=== PATIENT | male | born 2000 | race Caucasian/White ===

== ENCOUNTER 2023-03-25 17:40 | Emergency (ER) | payer OTHER, SELFPAY ==
[2023-03-25 17:47] VITALS: BP 109/77; PULSE 106; RESP 18; TEMP 36.6; O2SAT 99; BMI 21.5
--- NOTE | 2023-03-25 18:45 | CT_ITS ---
[facility] [place] [id number] Patient Name: EDGARDO MONTES MRN: [id number] date: 2000 Sex: M Assigned Patient Location: ER Current Patient Location: ED.MAIN Accession/Order Number: [id number] Exam Date: 03/25/2023 18:55 Report Date: 03/25/2023 20:05 At the request of: MILDRED MCITNYRE Procedure: CT cervical spine wo con EXAM: CT cervical spine wo con HISTORY: pain COMPARISON: None. TECHNIQUE: Unenhanced axial CT of the cervical spine is performed with coronal and sagittal reflects provided. FINDINGS: The craniocervical junction is maintained. Vertebral body heights and alignment are preserved. There are displaced C6 and C7 spinous process fractures noted. These involve the lamina bilaterally at each level. No significant degenerative disc disease. Mild fat stranding of the subcutaneous soft tissues at C6 and C7. The lung apices are clear. CT/CT cervical spine wo con IMPRESSION: Displaced fractures of C6 and C7 spinous processes as above. Electronically authenticated by: BONILLA DESAI Date: 03/25/2023 20:05
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
[2023-03-25 19:20] VITALS: BP 107/61; PULSE 68; RESP 20; O2SAT 98
== END 2023-03-25 20:47 | disposition home or self-care (01) ==
PROVIDERS: Emergency Provider Emergency Medicine
DX: M54.6 Pain in thoracic spine (principal); M54.2 Cervicalgia; F17.210 Nicotine dependence, cigarettes, uncomplicated; S12.500D Unspecified displaced fracture of sixth cervical vertebra, subsequent encounter for fracture with routine healing; S12.600D Unspecified displaced fracture of seventh cervical vertebra, subsequent encounter for fracture with routine healing; V89.2XXD Person injured in unspecified motor-vehicle accident, traffic, subsequent encounter
CPT/HCPCS: 72125; 99284

== ENCOUNTER 2023-07-20 10:30 | Observation (INO) | payer OTHER, SELFPAY ==
[2023-07-20] VITALS (11 sets, daily range): BP systolic 102–113; BP diastolic 50–64; PULSE 50–85; TEMP 36.4–36.8; O2SAT 97–100; BMI 20.2; BMI 20.1
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
--- NOTE | 2023-07-20 11:16 | CT_ITS ---
[address] [address] Patient Name: EDGARDO MONTES MRN: [id number] date: 2000 Sex: M Assigned Patient Location: ER Current Patient Location: Accession/Order Number: [id number] Exam Date: 07/20/2023 11:35 Report Date: 07/20/2023 11:52 At the request of: KRISTY UNDERWOOD Procedure: CT abdomen pelvis wo con EXAMINATION: CT abdomen pelvis wo con HISTORY: poss R kidney stone COMPARISON: No relevant comparison available. TECHNIQUE: Axial, Coronal, and Sagittal images were created without IV contrast. Dose reduction techniques were achieved by using automated exposure control and/or adjustment of mA and/or kV according to patient size and/or use of iterative reconstruction technique. FINDINGS: LUNG BASES: No visible pulmonary or pleural disease. LIVER: No enlargement, atrophy, abnormal density, or significant focal lesion. BILIARY: No dilatation or calcification. PANCREAS: No lesion, fluid collection, ductal dilatation, or atrophy. SPLEEN: No enlargement or focal lesion. ADRENALS: No mass or enlargement. KIDNEYS: No mass, obstruction, or calcification. BOWEL/MESENTERY: No visible mass, obstruction, or bowel wall thickening. The appendix is enlarged by strict size criteria measuring 8 mm in diameter. Minimal periappendiceal mesenteric stranding. AORTA/VASCULAR: No aneurysm or dissection. RETROPERITONEUM: No mass or adenopathy. LYMPH NODES: No adenopathy. URINARY BLADDER: No visible focal wall thickening, lesion, or calculus. PELVIC ORGANS: No visible mass. Pelvic organs appropriate for patient age. ABDOMINAL WALL: No mass or hernia. BONES: No bony lesion or fracture. OTHER: Negative. CT/CT abdomen pelvis wo con IMPRESSION: Acute uncomplicated appendicitis No obstructive uropathy Electronically authenticated by: SHERIE GUZMAN Date: 07/20/2023 11:52
[2023-07-20] MEDS: ONDANSETRON PF 4 MG/2 ML VIAL IV (11:25)
[2023-07-20] MEDS: KETOROLAC TROMETHAMINE 30 MG/ML VIAL 15 MG IVP (11:25)
[2023-07-20] MEDS: 0.9 % SODIUM CHLORIDE 1,000 ML 999 ML IV (11:26)
[2023-07-20 11:29] LABS: Basophils Absolute Auto 0.1 10^3/uL (0.0-0.1); Basophils Percent Auto 1.2 % (0.2-2.0); Eosinophils Absolute Auto 0.3 10^3/uL (0.0-0.7); Eosinophils Percent Auto 4.1 % (0.9-7.0); Hematocrit 42.1 % (42.0-54.0); Hemoglobin 14.8 g/dL (14.0-18.0); Immature Granulocytes Abs Auto 0.02 10^3/uL (0.00-0.03); Immature Granulocytes Pct Auto 0.3 % (0.0-0.5); Lymphocytes Absolute Auto 1.8 10^3/uL (1.2-3.8); Lymphocytes Percent Auto 26.8 % (20.5-60.0); Mean Corpuscular HGB Conc 35.2 g/dL (29.9-35.2); Mean Corpuscular Volume 85.4 fL (80.0-94.0); Monocytes Absolute Auto 0.4 10^3/uL (0.3-0.8); Monocytes Percent Auto 6.6 % (1.7-12.0); Platelet Count 257 10^3/uL (150-450); Red Blood Count 4.93 10^6/uL (4.70-6.10); White Blood Count 6.5 10^3/uL (4.0-11.0)
--- NOTE | 2023-07-20 11:29 | ED_ITS ---
HPI - Abdominal Pain General Chief Complaint: Abdominal Pain Stated Complaint: ABDOMINAL PAIN Time Seen by Provider: 07/20/23 11:09 Source: patient Mode of arrival: walk-in History of Present Illness HPI narrative: Patient presents to ED complaining of right lower quadrant pain. He said it started this morning when he woke up pretty suddenly. He does not have a history of this pain. Denies fevers or vomiting. He said he thinks his mom told him that he has had his appendix out when he was younger but he is not really sure. No history of kidney stones. He does have some pain into the back and a little bit of radiation of the pain to the testicle. No specific testicular pain it just seems to radiate down a little bit. No penile discharge. No concerns for STD. Related Data Home Medications ?Medication ?Instructions ?Recorded ?Confirmed No Known Home Medications 07/20/23 07/20/23 Allergies Allergy/AdvReac Type Severity Reaction Status Date / Time No Known Drug Allergies Allergy Verified 03/25/23 17:46 Review of Systems ROS Status of ROS 10 or more systems reviewed and unremark able except as noted in history and below [facility] Social History Smoking status: Current every day smoker Exam Narrative Exam Narrative: Time Seen: [] Vital Signs: [Per nurse's notes.] General: [Alert] Skin: [Warm, dry, no rash.] Head: [Normocephalic, atraumatic.] Neck: [Supple, trachea midline.] Eye: [Pupils are equal, round and reactive to light, extraocular movements are intact, normal conjunctiva.] Ears, nose, mouth and throat: oral mucosa moist. Cardiovascular: [Regular rate and rhythm, no murmur.] Respiratory: [Lungs are clear to auscultation, respirations are non-labored, breath sounds are equal.] Chest wall: [No tenderness, no deformity.] Gastrointestinal: [Soft, Mild right lower quadrant tenderness no rebound no guarding mild right CVA tenderness, non distended, normal bowel sounds.] MSK: 5 out of 5 muscle strength x 4 extremities no calf pain or edema Lymphatics: [No lymphadenopathy.] Psychiatric: [Cooperative, appropriate mood & affect.] Neurological: [Alert and oriented to person, place, time, and situation, no focal neurological deficit observed.] Constitutional Vital Signs, click to edit/add: Last Vital Signs Temp 98.1 F 07/20/23 10:36 Pulse 85 07/20/23 10:36 Resp 16 07/20/23 10:36 BP 113/60 07/20/23 10:36 Pulse Ox 100 07/20/23 10:36 Course Course Hospital Course: IV started. IV Toradol and Zofran and fluids given. Possible kidney stone. Labs and CT ordered. Vital Signs Vital signs: Vital Signs Temperature 98.1 F 07/20/23 10:36 Pulse Rate 85 07/20/23 10:36 Respiratory Rate 16 07/20/23 10:36 Blood Pressure 113/60 07/20/23 10:36 Pulse Oximetry 100 07/20/23 10:36 Temperature 98.1 F 07/20/23 10:36 Pulse Rate 85 07/20/23 10:36 Respiratory Rate 16 07/20/23 10:36 Blood Pressure 113/60 07/20/23 10:36 Pulse Oximetry 100 07/20/23 10:36 MDM - Abdominal Pain MDM Narrative Medical decision making narrative: Patient's labs are nonacute. CT scan shows possible early acute appendicitis. I called and spoke to Dr. Eugene who was in a case at that time. He then reviewed the CT scan and he was not sure if it was appendicitis so he came down to the ED to evaluate the patient. He said the patientStill has some nausea vomiting and some pain there although he is not convinced since acute appendicitis. The patient states he remembers that his parents said he got his appendix out when he was little. Given this lack of clarity we will admit the patient to [facility] for serial exams under Dr. Eugene Patient was given Zofran And Zosyn in the ED. He is comfortable care plan for admission. Differential Diagnosis Differential diagnosis: Likely abdominal pain, acute appendicitis, calculus of kidney, gastroenteritis and small bowel obstruction Medical Records Attestation: I reviewed the patient's medical records. Lab Data Attestation: I reviewed the patient's lab results. Labs: Lab Results 07/20/23 07/20/23 Range/Units 10:42 10:45 WBC 6.5 (4.0-11.0) 10^3/uL RBC 4.93 (4.70-6.10) 10^6/uL Hgb 14.8 (14.0-18.0) g/dL Hct 42.1 (42.0-54.0) % MCV 85.4 (80.0-94.0) fL MCH 30.0 (25.9-34.0) pg MCHC 35.2 (29.9-35.2) g/dL RDW 12.0 (11.0-15.0) % Plt Count 257 (150-450) 10^3/uL MPV 10.0 (9.5-13.5) fL Neut % (Auto) 61.0 (43.0-75.0) % Lymph % (Auto) 26.8 (20.5-60.0) % [place] % (Auto) 6.6 (1.7-12.0) % Eos % (Auto) 4.1 (0.9-7.0) % Baso % (Auto) 1.2 (0.2-2.0) % Neut # (Auto) 4.0 (1.4-6.5) 10^3/uL Lymph # (Auto) 1.8 (1.2-3.8) 10^3/uL [place] # (Auto) 0.4 (0.3-0.8) 10^3/uL Eos # (Auto) 0.3 (0.0-0.7) 10^3/uL Baso # (Auto) 0.1 (0.0-0.1) 10^3/uL Abs Immat Gran (auto) 0.02 (0.00-0.03) 10^3/uL Imm/Tot Granulo (auto) 0.3 (0.0-0.5) % Sodium 140 (136-145) mmol/L Potassium 3.7 (3.5-5.1) mmol/L Chloride 105 (98-107) mmol/L Carbon Dioxide 26.2 (21.0-32.0) mmol/L Anion Gap 12.5 BUN 11.0 (7.0-18.0) mg/dL Creatinine 0.91 (0.70-1.30) mg/dL Est GFR ( Amer) >60 (>=60) Est GFR (Non-Af Amer) >60 (>=60) BUN/Creatinine Ratio 12.1 Glucose 92 (74-106) mg/dL Calcium 9.7 (8.5-10.1) mg/dL Total Bilirubin 0.9 (0.2-1.0) mg/dL AST 8 L (15-37) U/L ALT 17 (16-63) U/L Alkaline Phosphatase 58 (46-116) U/L Total Protein 7.5 (6.4-8.2) g/dL Albumin 4.1 (3.4-5.0) g/dL Globulin 3.4 g/dL Albumin/Globulin Ratio 1.2 Urine Color Yellow (YELLOW) Urine Clarity Clear (CLEAR) Urine pH 6.0 (5.0-9.0) Ur Specific [place] 1.025 (1.005-1.025) Urine Protein Negative (NEG/TRACE) mg/dL Urine Glucose (UA) Negative (NEGATIVE) mg/dL Urine Ketones Negative (NEGATIVE) mg/dL Urine Occult Blood Negative (NEGATIVE) Urine Nitrite Negative (NEGATIVE) Urine Bilirubin Negative (NEGATIVE) Urine Urobilinogen 0.2 (0.2-1.0) EU/dL Ur Leukocyte Esterase Negative (NEGATIVE) Imaging Data CT scan - abdomen: Radiologist's impression: ITS Impressions Abdomen/Pelvis CT 07/20/23 11:16 IMPRESSION: Acute uncomplicated appendicitis No obstructive uropathy Electronically authenticated by: SHERIE GUZMAN Date: 07/20/2023 11:52 Discharge Plan Discharge Chief Complaint: Abdominal Pain Clinical Impression: Abdominal pain, RLQ Patient Disposition: Admitted as Observation Time of Disposition Decision: 14:18 Condition: Good Prescriptions / Home Meds: No Action No Known Home Medications Print Language: Maori Referrals: Physician,Non-Staff, MD [Primary Care Provider] - 1 week
[2023-07-20 11:36] LABS: Bilirubin Urine NEGATIVE (NEGATIVE); Blood Urine NEGATIVE (NEGATIVE); Clarity Urine CLEAR (CLEAR); Color Urine YELLOW (YELLOW); Glucose Urine UA NEGATIVE (NEGATIVE); Ketones Urine NEGATIVE (NEGATIVE); Leukocyte Esterase Urine NEGATIVE (NEGATIVE); Nitrite Urine NEGATIVE (NEGATIVE); Protein Urine NEGATIVE (NEG/TRACE); Specific Gravity Urine 1.025 (1.005-1.025); Urobilinogen Urine 0.2 EU/dL (0.2-1.0)
[2023-07-20 11:43] LABS: Alanine Aminotransferase 17 U/L (16-63); Albumin Globulin Ratio 1.2; Albumin Level 4.1 g/dL (3.4-5.0); Alkaline Phosphatase 58 U/L (46-116); Anion Gap 12.5; Aspartate Amino Transferase 8 U/L (15-37); BUN Creatinine Ratio 12.1; Bilirubin Total 0.9 mg/dL (0.2-1.0); Calcium 9.7 mg/dL (8.5-10.1); Carbon Dioxide 26.2 mmol/L (21.0-32.0); Chloride 105 mmol/L (98-107); Estimated GFR (African America >60 (>=60); Estimated GFR (Non-African Ame >60 (>=60); Globulin 3.4 g/dL; Glucose 92 mg/dL (74-106); Potassium 3.7 mmol/L (3.5-5.1); Sodium 140 mmol/L (136-145); Total Protein 7.5 g/dL (6.4-8.2)
[2023-07-20 11:44] LABS: Urine Microscopic Indicated NO
[2023-07-20] MEDS: PIPERACILLIN SODIUM/TAZOBACTAM 3.375 GM in 0.9 % SODIUM CHLORIDE 50 ML IV (13:54)
[2023-07-20] MEDS: LACTATED RINGER'S SOLUTION 1,000 ML 75 ML IV (16:50)
[2023-07-20] MEDS: AMPICILLIN SODIUM/SULBACTAM NA 3 GM in 0.9 % SODIUM CHLORIDE 100 ML IV (20:57)
[2023-07-21] MEDS: AMPICILLIN SODIUM/SULBACTAM NA 3 GM in 0.9 % SODIUM CHLORIDE 100 ML IV ×2 (01:52→07:40)
[2023-07-21 04:17] VITALS: BP 94/59; PULSE 52; TEMP 36.3; O2SAT 98
[2023-07-21 04:54] LABS: Basophils Absolute Auto 0.1 10^3/uL (0.0-0.1); Basophils Percent Auto 1.2 % (0.2-2.0); Eosinophils Absolute Auto 0.3 10^3/uL (0.0-0.7); Eosinophils Percent Auto 4.6 % (0.9-7.0); Hematocrit 37.3 % (42.0-54.0); Hemoglobin 12.9 g/dL (14.0-18.0); Immature Granulocytes Abs Auto 0.01 10^3/uL (0.00-0.03); Immature Granulocytes Pct Auto 0.1 % (0.0-0.5); Lymphocytes Absolute Auto 2.7 10^3/uL (1.2-3.8); Lymphocytes Percent Auto 40.4 % (20.5-60.0); Mean Corpuscular HGB Conc 34.6 g/dL (29.9-35.2); Mean Corpuscular Volume 86.7 fL (80.0-94.0); Mean Platelet Volume 10.1 fL (9.5-13.5); Monocytes Absolute Auto 0.5 10^3/uL (0.3-0.8); Neutrophils Absolute Auto 3.2 10^3/uL (1.4-6.5); Neutrophils Percent Auto 46.7 % (43.0-75.0); Platelet Count 236 10^3/uL (150-450); White Blood Count 6.8 10^3/uL (4.0-11.0)
[2023-07-21 05:06] LABS: Anion Gap 11.9; BUN Creatinine Ratio 10.2; Calcium 9.3 mg/dL (8.5-10.1); Carbon Dioxide 26.9 mmol/L (21.0-32.0); Chloride 107 mmol/L (98-107); Estimated GFR (African America >60 (>=60); Estimated GFR (Non-African Ame >60 (>=60); Glucose 87 mg/dL (74-106); Potassium 3.8 mmol/L (3.5-5.1); Sodium 142 mmol/L (136-145)
[2023-07-21] MEDS: LACTATED RINGER'S SOLUTION 1,000 ML 75 ML IV (06:40)
--- NOTE | 2023-07-21 07:00 | PM.GSHP ---
History of Present Illness History of Present Illness Chief complaint: ABDOMINAL PAIN RLQ Narrative: history and physical dictated; 23 yo male with 1 day h/o nausea/vomiting and right abd pain; n/v resolved, still with some pain; normal labs; ct without inflammation in right lower quadrant, no free fluid; h/o remote appendectomy as child. [facility] Medical History (Updated 07/20/23 @ 15:45 by Anisa Mcnamara) Neck fracture ?S12.9XXA - Fracture of neck, unspecified, initial encounter (ICD-10) Family History (Updated 07/20/23 @ 15:46 by Anisa Mcnamara) Father Family history of cancer Grandmother Family history of diabetes mellitus Family history of myocardial infarction Family history of stroke Social History (Updated 07/20/23 @ 15:49 by Anisa Mcnamara) Within the past year, how often did you have a drink containing alcohol: monthly or less Within the past year, how often did you have six or more drinks on one occasion: never Smoking status: Current every day smoker Do you use any of these nicotine containing products: vaping products Non-prescribed substance use: cannabis (any form) 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 Known occupational exposures/hazards: No Highest level of school completed/degree received: high school graduate Are you now , , , , never or living with a partner: living with partner Little interest or pleasure in doing things: not at all Feeling down, depressed, or hopeless: not at all Feel stressed/tense/nervous/anxious/difficulty sleeping: not at all Meds Home Medications and Allergies Home Medications ?Medication ?Instructions ?Recorded ?Confirmed ?Type No Known Home Medications 07/20/23 07/20/23 History Allergies Allergy/AdvReac Type Severity Reaction Status Date / Time No Known Drug Allergies Allergy Verified 03/25/23 17:46 Exam Constitutional Vital Signs, click to edit/add: Last Vital Signs Temp 97.4 F L 07/21/23 04:17 Pulse 52 L 07/21/23 04:17 Resp 18 07/21/23 04:17 BP 94/59 07/21/23 04:17 Pulse Ox 98 07/21/23 04:17 O2 Del Method Room Air 07/21/23 04:17 Assessment and Plan Assessment and Plan (1) Abdominal pain, RLQ: Plan already given dose of antibiotics in ED; will observe, begin full liquids, continue antibiotics; repeat labs in am, serial exams; likely gastroenteritis.
--- NOTE | 2023-07-21 07:03 | PM.GSPN ---
Progress Note: A&P Assessment and Plan (1) Abdominal pain, RLQ: Assessment and Plan: improved, no evidence of ongoing infection; likely resoving gastroenteritis Plan regular diet; if tolerates and no increased pain, will discharge to home, will complete 5 day course of antibiotics; f/u in office next week; call sooner if problems/questions. Subjective Subjective Patient reports: no new complaints and pain is less Interval history: slept well overnight; tolerated full liquids yesterday without nausea or emesis, no bms; pain improved but not gone; afebrile; normal wbc this am. Exam Narrative Exam Narrative: abd: soft, nondistended, normal bs, no peritoneal signs, mild tenderness right mid/lower abd; no masses Constitutional Vital Signs, click to edit/add: Last Vital Signs Temp 97.4 F L 07/21/23 04:17 Pulse 52 L 07/21/23 04:17 Resp 18 07/21/23 04:17 BP 94/59 07/21/23 04:17 Pulse Ox 98 07/21/23 04:17 O2 Del Method Room Air 07/21/23 04:17
[2023-07-21 07:44] VITALS: BP 121/88; PULSE 71; TEMP 36.7; O2SAT 98
--- NOTE | 2023-07-22 14:55 | CM.DCFOLLOWU ---
Telephone disconnected
== END 2023-07-21 10:49 | disposition home or self-care (01) ==
LOC: ER 14:39 → MS 15:22
PROVIDERS: Admitting Provider Surgery; Emergency Provider Emergency Medicine; Visit Provider Surgery
DX: R10.31 Right lower quadrant pain (principal); F17.210 Nicotine dependence, cigarettes, uncomplicated; F12.90 Cannabis use, unspecified, uncomplicated
CPT/HCPCS: 36415; 74176; 80048; 80053; 81003; 85025; 96361; 96365; 96366; 96367; 96375; 99285; G0378